=== PATIENT | male | born 1965 | race Caucasian/White ===

== ENCOUNTER 2020-06-15 06:43 | Outpatient (CLI) | payer OTHER, SELFPAY ==
--- NOTE | 2020-06-15 07:30 | XR_ITS ---
WS: [id number] XR KUB [id number] REASON FOR EXAM: KIDNEY STONE FINDINGS: There are multiple renal calculi bilaterally. The number, size, and location is unchanged on the righ t. There appears to been shifting of calculi into the upper pole of the left kidney but the size and num magdalene of calculi unchanged. No calculi are identified along the abdominal or pelvic course of the ureters. There are 2 calcificat ions in the right pelvis is not readily identifiable on the previous examination which do not appear to lie within the genitourinary tract. XR/XR KUB [id number] IMPRESSION: There are multiple renal calculi/calculus fragments in both kidneys there does not appear to have been an increase in number or volume of the calculi. There i s been shifting of the position of several calculi into the upper pole of the l eft kidney.
== END 2020-06-15 06:44 | disposition home or self-care (01) ==
PROVIDERS: PCP Family Medicine; Visit Provider Urology
DX: N20.0 Calculus of kidney (principal)
CPT/HCPCS: 74018; 81003; G0103

== ENCOUNTER 2021-01-23 13:17 | Emergency (ER) | payer OTHER, SELFPAY ==
[2021-01-23 13:45] VITALS: BP 157/75; PULSE 60; RESP 19; TEMP 36.6; O2SAT 98; BMI 36.0
--- NOTE | 2021-01-23 14:01 | CTR_ITS ---
PROCEDURE INFORMATION: Exam: CT Abdomen And Pelvis Without Contrast Exam date and time: 01/23/2021 2:01 PM Age: 55 years old Clinical indication: Abdominal pain; Flank; Right; Additional info: Hematuria, right flank pain, HX of stones TECHNIQUE: Imaging protocol: Computed tomography of the abdomen and pelvis without contrast. Radiation optimization: All CT scans at this facility use at least one of these dose optimization techniques: automated exposure control; mA and/or kV adjustment per patient size (includes targeted exams where dose is matched to clinical indication); or iterative reconstruction. COMPARISON: CR XR KUB [id number] 06/15/2020 7:24 AM RADIATION DOSE METRICS: Total DLP (mGy-cm): 8.03 FINDINGS: Liver: Normal. No mass. Gallbladder and bile ducts: Normal. No calcified stones. No ductal dilation. Pancreas: Normal. No ductal dilation. Spleen: Normal. No splenomegaly. Adrenal glands: Normal. No mass. Kidneys and ureters: 5 mm stone in the proximal right ureter series 2, image 110. No significant upstream obstruction at this time. Numerous predominantly sub 4 mm bilateral nonobstructing stones within both kidneys. The largest nonobstructing stone in the right kidney in the upper pole measures 6 mm series 2, image 87. The largest nonobstructing stone in the left kidney is in the lower pole measuring 5 mm series 2, image 104. 2 cm exophytic lesion in the upper pole left kidney, internal Hounsfield units are considered indeterminate on this noncontrast study series 2, image 87. Stomach and bowel: Unremarkable. No obstruction. No mucosal thickening. Appendix: No evidence of appendicitis. Intraperitoneal space: Unremarkable. No free air. No significant fluid collection. Vasculature: Infrarenal abdominal aortic aneurysm measuring up to 4 cm in AP dimension series 2, image 125. Lymph nodes: Unremarkable. No enlarged lymph nodes. Urinary bladder: Small 5 mm bladder stone versus recently passed stone layering the inferior bladder series 2 image 181. Reproductive: Unremarkable as visualized. Bones/joints: No acute fracture. Degenerative disc disease at L4-L5 with disc herniation at this level. Soft tissues: Unremarkable. CT/CT kidney stone [id number] IMPRESSION: 1. 5 mm stone in the proximal right ureter without significant upstream obstruction at this time. 2. Several additional nonobstructing bilateral renal stones. 5 mm bladder stone or recently passed stone within the bladder. 3. Indeterminate 2 cm exophytic lesion in the upper pole of the left kidney. Would recommend non emergent ultrasound follow-up of the kidneys to evaluate cystic or solid nature of the lesion. 4. Infrarenal abdominal aortic aneurysm measuring up to 4 cm in size. COMMENTS: Consistent with the [employer]'s Incidental Findings Committee white paper (J Am Mahnaz Radiol 2018): Any incidental renal lesion less than 1 cm or classified as too small to characterize, or any incidental cystic renal lesion characterized as simple-appearing, is likely benign. No follow-up imaging is recommended for these lesions per consensus recommendations based on imaging criteria. Radiation Dose CTDIVOL = (mGy): DLP = 2068.03 (mGy-cm)
--- NOTE | 2021-01-23 14:02 | ED_ITS ---
HPI - Male Genitourinary General: Chief complaint: Urogenital-Male Stated complaint: STATES FEELS LIKE KIDNEY STONES Time Seen by Provider: 01/23/21 13:55 History of Present Illness: HPI Narrative: Patient presents with right flank pain that started this morning. Reading some to his abdomen. Has had hematuria since Monday. Patient also nauseous now. Patient has a history of lithotripsy types 2 and having a stone taken out by basket procedure all this performed Dr. Holloway. PERSAUD Complaint: other (Flank pain) Onset (ago): hour(s) Duration: constant and progressively worsening Location: right flank Radiation: abdomen Severity: severe Severity scale (1-10): 5 Quality: dull Relieving factors: none Associated symptoms: Reports hematuria; Deny nausea or vomiting Review of Systems Const: Denies: fever(s), chills or body aches Eyes: Denies: change in vision or blurry vision ENMT: Denies: throat pain or nasal congestion Card: Denies: chest pain or dyspnea on exertion Resp: Denies: dyspnea, productive cough or non-productive cough GI: Denies: abdominal pain, nausea or vomiting : Reports: flank pain and hematuria Musc: Denies: extremity pain Skin/Breast: Denies: rash Neuro: Denies: headache(s) Psych: Denies: anxiety or depression Peter/Lymph: Denies: easy bruising PFSH ED PFSH: Medical History BPH loc w urin obs/LUTS HTN (hypertension) Hypocitraturia Kidney stones Surgical History History of arthroscopy of left knee History of extraction of renal calculus ESWL Hx of umbilical hernia repair Hx of vasectomy Social History Smoking and tobacco status: never smoked Alcohol intake: never Adopted: No Caregiver/support person: No Lives independently: No Marital status: Current occupational status: employed Physical Exam Const: COMMON NORMALS: average body habitus and patient oriented x3 GENERAL APPEARANCE: in distress ORIENTATION/CONSCIOUSNESS: Yes awake, Yes oriented to person and Yes oriented to place HENMT: COMMON NORMALS: normocephalic HEAD & SCALP: normal to inspection and normocephalic FACE & SINUS: normal facial exam Eye: COMMON NORMALS: conjunctivae normal GENERAL EYE: appearance normal, both eyes and all related structures CONJUNCTIVA: Yes conjunctivae normal Neck/C-Spine: COMMON NORMALS: no JVD Chest: COMMONS NORMALS: normal inspection of the chest Resp: COMMON NORMALS: normal respiratory effort Cardio: COMMON NORMALS: no JVD GI: INSPECTION: Yes normal to inspection Extremity: COMMON NORMALS: normal to inspection and full ROM Neuro: COMMON NORMALS: patient oriented x3 SENSORIUM/ORIENTATION: Yes oriented to person and Yes oriented to place Course Vital Signs: Vital signs: Vital Signs Temperature 97.9 F 01/23/21 13:45 Pulse Rate 60 01/23/21 13:45 Respiratory Rate 20 H 01/23/21 14:09 Blood Pressure 157/75 01/23/21 13:45 Pulse Oximetry 100 01/23/21 14:09 MDM - Male MDM Narrative: Medical decision making narrative: Discussed case with Dr. Perry tomas as planned with Dr. Quezada follow-up concerning radiology results. Lab Data: Labs: Lab Results 01/23/21 01/23/21 Range/Units 14:00 14:00 WBC 10.7 H (4.0-10.0) 10^3/ uL RBC 4.86 (4.1-5.3) 10^6/u L Hgb 14.6 (11.7-16.6) g/dL Hct 43.1 (42.0-52.0) % MCV 88.7 (80-94) fL MCH 30.0 (28.0-34.0) pg MCHC 33.9 (30.0-36.0) g/dL RDW 12.7 (12.1-15.1) % Plt Count 252 (130-400) 10^3/c mm MPV 10.8 H (7.4-10.4) fL Neut % (Auto) 80.7 % Lymph % (Auto) 9.9 % [place] % (Auto) 8.0 % Eos % (Auto) 0.6 % Baso % (Auto) 0.5 % Neut # (Auto) 8.62 H (1.8-7.7) 10^3/u L Lymph # (Auto) 1.1 (0.8-4.8) 10^3/u L [place] # (Auto) 0.9 (0.2-0.9) 10^3/u L Eos # (Auto) 0.1 (0.0-0.8) 10^3/u L Baso # (Auto) 0.1 (0.0-0.1) 10^3/u L Nucleated RBC % (a uto) 0 % Nucleated RBCs # 0.0 /100WBC Sodium 140 (136-145) mmol/L Potassium 4.6 (3.5-5.1) mmol/L Chloride 102 (98-107) mmol/L Carbon Dioxide 24 (22-29) mmol/L Anion Gap 18.6 (5-19) BUN 19 (6-20) mg/dL Creatinine 1.4 H (0.7-1.2) mg/dL GFR Calculation 52.2 L (90-130) mL/min Glucose 152 H (65-115) mg/dL Calculated Osmolal ity 295 (285-295) mOsm/k g Calcium 9.4 (8.5-10.5) mg/dL Total Bilirubin 0.5 (0.15-1.2) mg/dL AST 27 (0-40) U/L ALT 23 (0-41) U/L Alkaline Phosphata se 168 H (40-130) IU/L Total Protein 7.7 (6.6-8.7) g/dL Albumin 4.3 (3.5-5.2) g/dL Globulin 3.4 (1.3-4.6) g/dL Lipase 33 (13-60) U/L Discharge Plan Discharge Patient Disposition: Home Clinical Impression: Calculus, urinary bladder, Aneurysm of infrarenal abdominal aorta, Lesion of left [place] kidney Calculus, urinary Qualifiers: Urinary calculus location: ureter Qualified Code(s): N20.1 - Calculus of ureter Condition: Stable Prescriptions: New Flomax 0.4 mg capsule 0.4 mg PO DAILY Qty: 7 RF: 0 Zofran 4 mg tablet 4 mg PO Q8H 3 Days Qty: 9 RF: 0 No Action atorvastatin 40 mg tablet 40 mg PO DAILY RF: 0 metoprolol succinate 50 mg tablet extended release 24 hr 50 mg PO DAILY RF: 0 finasteride 5 mg tablet 5 mg PO DAILY Qty: 90 RF: 3 hydrochlorothiazide 12.5 mg tablet 12.5 mg PO DAILY RF: 0 Centrum Silver Ultra Men's 300-600-300 mcg Tablet 1 tab PO DAILY RF: 0 alfuzosin 10 mg tablet extended release 24 hr 10 mg PO DAILY RF: 0 potassium citrate 15 mEq tablet extended release 15 meq PO BID RF: 0 Discharge Orders: Discharge ED (Routine); Ordered 01/23/21 Ordered By: Jann Austin Referrals: Christine Curtis MD [Primary Care Provider] - Discharge Diet: Usual diet Discharge Activity: Increase activity as tolerated Patient Instructions: Kidney Stones (ED), Renal Colic (ED), How to Strain Your Urine (ED), Opioid Safety Activity Restrictions/Additional Instructions: Follow-up with medical provider as directed. Take medications as prescribed. Return to the ER or your medical provider if condition worsens. Please read and understand discharge instructions. If any questions ask please. Make sure you follow-up Dr. Curtis and go over radiology results pertaining to the stone, renal aneurysm, kidney lesion. Strain urine, contact Dr. Jovel's office for follow-up appointment as necessary, Coding Level of Care Code ED Engineer Automated Equipment for Mukund Fwd Exam Comprehensive
[2021-01-23] MEDS: ondansetron 2 mg/ML SDV 2 mL 8 MG IVP (14:08)
[2021-01-23 14:09] VITALS: RESP 20; O2SAT 100
[2021-01-23] MEDS: morphine 4 mg/mL SDV 1 mL IVP (14:09)
[2021-01-23] MEDS: sodium chloride 0.9% 1,000 ML 999 ML IV (14:20)
[2021-01-23 14:23] LABS: Basophils # 0.1 10^3/uL (0.0-0.1); Basophils % 0.5 %; Eosinophils # 0.1 10^3/uL (0.0-0.8); Eosinophils % 0.6 %; Hematocrit 43.1 % (42.0-52.0); Hemoglobin 14.6 g/dL (11.7-16.6); Lymphocytes # 1.1 10^3/uL (0.8-4.8); Lymphocytes % 9.9 %; Mean Corpuscular HGB Conc 33.9 g/dL (30.0-36.0); Mean Corpuscular Volume 88.7 fL (80-94); Mean Platelet Volume 10.8 fL (7.4-10.4); Monocytes # 0.9 10^3/uL (0.2-0.9); Neutrophils # 8.62 10^3/uL (1.8-7.7); Neutrophils % 80.7 %; Nucleated Red Blood Cells % 0 %; Platelet Count 252 10^3/cmm (130-400); Red Blood Count 4.86 10^6/uL (4.1-5.3); Red Cell Distribution Width 12.7 % (12.1-15.1); White Blood Count 10.7 10^3/uL (4.0-10.0)
[2021-01-23 14:58] LABS: Alanine Aminotransferase 23 U/L (0-41); Albumin Level 4.3 g/dL (3.5-5.2); Alkaline Phosphatase 168 IU/L (40-130); Anion Gap 18.6 (5-19); Aspartate Amino Transferase 27 U/L (0-40); Blood Urea Nitrogen 19 mg/dL (6-20); Calcium 9.4 mg/dL (8.5-10.5); Carbon Dioxide 24 mmol/L (22-29); Chloride 102 mmol/L (98-107); Globulin 3.4 g/dL (1.3-4.6); Glomerular Filtration Rate 52.2 mL/min (90-130); Glucose 152 mg/dL (65-115); Lipase 33 U/L (13-60); Osmolality Calculated 295 mOsm/kg (285-295); Potassium 4.6 mmol/L (3.5-5.1); Sodium 140 mmol/L (136-145); Total Bilirubin 0.5 mg/dL (0.15-1.2); Total Protein 7.7 g/dL (6.6-8.7)
[2021-01-23 15:00] VITALS: BP 150/89; PULSE 65; RESP 18; O2SAT 98
[2021-01-23 15:09] VITALS: RESP 18
[2021-01-23] MEDS: HYDROmorphone 1 mg/mL INJ 1 mL IVP (15:09)
[2021-01-23] MEDS: tamsulosin 0.4 mg Capsule 0.8 MG PO (15:09)
== END 2021-01-23 15:30 | disposition home or self-care (01) ==
PROVIDERS: Emergency Provider Nurse Practitioner Family; PCP Family Medicine
DX: N20.1 Calculus of ureter (principal); N21.0 Calculus in bladder; N28.9 Disorder of kidney and ureter, unspecified; I71.4 Abdominal aortic aneurysm, without rupture; I10 Essential (primary) hypertension
CPT/HCPCS: 74176; 80053; 83690; 85025; 96361; 96374; 96375; 99284; J1170; J2270; J2405; J7030

== ENCOUNTER 2021-01-26 08:38 | Outpatient (CLI) | payer OTHER, SELFPAY ==
--- NOTE | 2021-01-26 08:45 | XR_ITS ---
WS: [id number] XR KUB [id number] REASON FOR EXAM: STONES FINDINGS: Compared to 06/15/2020 there are multiple right renal calculi which appear stable in number and posit ion. The contradiction to that impression is that there appears to be a calculus in the distal right ureter overlying the right transverse process of L4. In addition there is a calculus in the deep righ t pelvis. Neither of these calculi are identified on the previous examination. There are multiple calculi on the left as well. The central complex shape calculus previously identif ied on 06/15/2020 is no longer visualized. This calculus is not identified within the pelvis. XR/XR KUB 83800 IMPRESSION: 1 calculus in the left kidney is no longer identifiable. While there appears to be the same number of calculi in the right kidney as pre viously noted there are 2 additional calculi in the right lower abdomen and rig ht pelvis as above.
== END 2021-01-26 08:39 | disposition home or self-care (01) ==
LOC: RAD 08:47
PROVIDERS: PCP Family Medicine; Visit Provider Urology
DX: N20.9 Urinary calculus, unspecified (principal); Z20.822 Contact with and (suspected) exposure to COVID-19; N20.0 Calculus of kidney
CPT/HCPCS: 74018; 81003; 87635

== ENCOUNTER 2021-01-29 07:28 | Outpatient (CLI) | payer OTHER, SELFPAY ==
--- NOTE | 2021-01-29 07:30 | XR_ITS ---
WS: [id number] XR KUB [id number] REASON FOR EXAM: stones FINDINGS: There are multiple bilateral renal calculi. There is a calculus in the right ureter just above the L5 -S1 level. These calculi are unchanged in position compared to the previous examination of 01/26/2021. No other significant abnormality or interval change is identified. XR/XR KUB 56494 IMPRESSION: Stable renal and right ureteral calculi as above.
== END 2021-01-29 07:29 | disposition home or self-care (01) ==
PROVIDERS: PCP Family Medicine; Visit Provider Urology
DX: N20.2 Calculus of kidney with calculus of ureter (principal)
CPT/HCPCS: 74018

== ENCOUNTER 2021-01-29 11:06 | Day surgery (SDC) | payer OTHER, SELFPAY ==
[2021-01-29] VITALS (8 sets, daily range): BP systolic 133–149; BP diastolic 78–105; PULSE 65–89; RESP 12–23; TEMP 36.1–36.6; O2SAT 94–98; BMI 34.7
--- NOTE | 2021-01-29 | SCC_ITS ---
Procedure Done: 1. Cystoscopy, right retrograde ureteropyelogram 2. RIGHT ureteral renoscopy,, laser lithotripsy, stent (six Slovak by 30 cm double-pigtail without string) 64.3 seconds of fluoroscopic guidance, for a cumulative dose of 28.58 mGy, was provided to Dr. Jovel by the radiology department. C-arm images of the abdomen were saved for the patient's permanent record. [facility]
--- NOTE | 2021-01-29 11:21 | SC_ITS ---
WS: [id number] C-arm FL for Urology REASON FOR EXAM: Preop right ureteroscopy FINDINGS: Contrast was injected into the right renal collecting system and the right ureter imaged from the ure teral pelvic junction to the scope in the urinary bladder. Previously there was a calculus in the right ureter at the L5-S1 level. No calculus is identified zach ng the course of the ureter as defined by the contrast injection. SC/C-arm [facility] for U[facility] IMPRESSION: Removal of right ureteral calculus confirmed by retrograde ureteral pyelogram.
[2021-01-29] MEDS: sodium chloride 0.9% 1,000 ML 30 ML IV (11:59)
--- NOTE | 2021-01-29 12:07 | ANES.PREANE2 ---
Pre-Anesthetic Assessment Pre-Anesthetic Assessment: Height/Weight: Height 1.85 m Weight 119.295 kg Temp Pulse Resp BP Pulse Ox 97.5 F L 89 16 149/105 97 01/29/21 11:31 01/29/21 11:31 01/29/21 11:31 01/29/21 11:31 01/29/21 11:31 Preop Diagnosis: Right mid ureteral calculus Proposed Procedure: Operation Date: 01/29/21 13:00 Proposed Procedures p Laser Lithotripsy 60726 [id number] 02635 n20.1(Not Applicable) - MD flaquito Liu Cystoscopy(Not Applicable) - MD flaquito Liu Retrograde Pyelogram(Right) - MD flaquito Liu Ureteroscopy(Not Applicable) - MD flaquito Liu Ureteral Stent Placement(Not Applicable) - Joel Jovel MD Was Beta Elizabeth taken within 24 hours: Yes Was Clonidine taken within 24 hours: N/A Last intake: Intake Last Liquid Date 01/29/21 Last Liquid Time 06:30 Last Solid Date 01/28/21 Last Solid Time 19:00 Social: Social History: No alcohol and No tobacco Exam: Pre-Anes Outpt Exam: alert, oriented x 3, clear to auscultation bilaterally and regular rate & rhythm Airway: Submandibular: WNL Cervical ROM: WNL MP: 2 Dentition: Full CV/HEM: CV/HEM: HTN and PVD (Infrarenal AAA) : Comments: Renal colic/stone Metabolic: Metabolic: Hyperlipidemia and Morbid obesity Anesthetic Plan: ASA status: 3 Anesthesia: General Risk of > 500 ml blood loss (7ml/kg in children): No Meds/Allergies Current Medications: Current Medications Generic Name Dose Route Start Last Admin Trade Name Freq PRN Reason Stop Dose Admin Sodium Chloride 1,000 mls @ 30 ml s/hr 01/29/21 11:30 01/29/21 11:59 Sodium Chloride 0.9% IV 01/30/21 11:29 30 mls/hr .Q24H PUSHPA Administration PFSH Anesthesia PFSH: 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
--- NOTE | 2021-01-29 12:58 | W.PM.OPSUD ---
Surgery/Procedure H&P Update DATE OF PROCEDURE: January 29, 2021 DATE H&P PERFORMED: 01/26/21 H&P UPDATE INFORMATION: I have reviewed H&P completed within last 30 days, I have examined patient prior to procedure, No changes to prior documentation and H&P is in [facility] EMR on date indicated PREOP DIAGNOSIS: Right mid ureteral calculus, Refractory pain PLANNED PROCEDURE: Operation Date: 01/29/21 13:00 Proposed Procedures p Laser Lithotripsy 85282 [id number] 45340 n20.1(Not Applicable) - Joel Jovel MD s Cystoscopy(Not Applicable) - MD flaquito Liu Retrograde Pyelogram(Right) - MD flaquito Liu Ureteroscopy(Not Applicable) - Joel Jovel MD s Ureteral Stent Placement(Not Applicable) - Joel Jovel MD
[2021-01-29] MEDS: levofloxacin-dextrose 5 % 500 MG/100 ML PREMIX 100 MG IV (13:00)
--- NOTE | 2021-01-29 13:03 | P.OP_ITS ---
Operative Report Date of procedure: January 29, 2021 Pre-op Diagnosis: Right mid ureteral calculus, Refractory pain Post-op Diagnosis: Right mid ureteral calculus, refractory pain Procedure Done: 1. Cystoscopy, right retrograde ureteropyelogram 2. RIGHT ureteral renoscopy,, laser lithotripsy, stent (six Angolan by 30 cm double-pigtail without string) Surgeon: Med Anesthesia: General Estimated blood loss: Minimal Urine output: Not measured Complications: None Brief History: Dipesh is a very pleasant 56-year-old white male with complex stone history. Has multiple bilateral renal calculi. Was recently evaluated emergency department for right renal colicky symptoms and was found to have a large stone in the right mid ureter that failed to significantly progressed. Was having intermittent bouts of severe pain and difficulty controlling it with oral narcotics of appropriate dosing. Ultimately chose to proceed with intervention. Further complicated by 4 cm distal abdominal aortic aneurysm. Not a candidate for ESWL Procedure: After routine preoperative evaluation examination and obtaining of informed consent he was taken to the operating suite on 01/29/2021 where general anesthesia was administered without difficulty after appropriate timeout was performed, SCDs confirmed to be functioning, preoperative antibiotics administered, beta-gail protocol confirmed. Prepped and draped in the usual sterile fashion in dorsolithotomy position paying careful attention to avoiding pressure points. Twenty-one Angolan cystoscope with 30 degree lens was introduced into the urethra meatus and advanced into the bladder under videoscopy. Bladder was systematically examined. A small bladder stone was identified and flushed out of the bladder. An eight Angolan cone-tip catheter was intubated to the right ureteral orifice for right retrograde ureteropyelogram demonstrating the following: Normal distal ureter. No filling defects until the stone was encountered at the expected level at about L4. Ureter proximal to that point was dilated. A flexible tip guidewire was then advanced up the right ureter bypassing the stone. Distal ureter was dilated with a fifteen Angolan 4 cm balloon. A second guidewire was then passed after the first was secured to the drapes as a safety wire. The working wire was then used to advance a 24 cm ureteral access sheath to just below the level of the stone without difficulty. A seven Angolan offset semirigid ureteroscope was then advanced up the sheath to the stone which was then fragmented with a 365 ?m thulium superpulse laser fiber. Dusting technique was utilized with excellent results. There was some migration of larger fragments into the renal pelvis. The flexible ureterorenoscope was then passed through the sheath up the ureter into the renal pelvis where these fragments were fragmented into sand and very tiny particles. 3 other stones not related to the ureter stones were identified. 2 of them could be reached with the scope 1 could not to the reach were fragmented. Most of the fragments were just sand and a lot of that was flushed through the sheath. A fair amount of the particles were flushed through the sheath and sent for pathologic evaluation. On final inspection of the scope no residual fragments remained. The cystoscope was then backloaded over the safety wire and a six Angolan by 30 cm double-pigtail stent was advanced over the guidewire through the cystoscope into appropriate position as confirmed via fluoroscopy and cystoscopy. Tolerated the procedure well without complications and was awakened in the operating room and returned to the recovery room in stable condition. PLANS: 1. Follow-up late next week for cystoscopy and stent removal with KUB first
--- NOTE | 2021-01-29 14:40 | PM.PACU ---
Documented by User: Nilay Clancy CRNA 01/29/21 14:41 PACU note PACU note: VSS, Good respiratory effort, report to [facility] Post-Anesthesia Exam: awake
--- NOTE | 2021-01-29 15:16 | ANE.PACU2 ---
Inpatient post-anesthesia follow up: Airway intact: Yes Vital signs: Temperature 97.8 F Pulse Rate 71 Respiratory Rate 14 Blood Pressure 134/78 Pulse Oximetry 97 Oxygen Delivery Me thod Room Air Oxygen Flow Rate Fraction of Inspir ed Oxygen Hydration adequate: Yes Nausea and vomiting: No Pain level: 2 Mental status: Baseline
[2021-01-29] MEDS: oxyCODONE-APAP 5-325 mg Tablet 1 TAB PO (15:34)
[2021-02-05 12:27] LABS: Stone Source RIGHT URETER
== END 2021-01-29 15:45 | disposition home or self-care (01) ==
PROVIDERS: PCP Family Medicine; Visit Provider Urology
PROC: (CPT 52356; principal; 2021-01-29 13:00)
PROC: 0TJB8ZZ Inspection of Bladder, Via Natural or Artificial Opening Endoscopic (ICD-10-PCS; CPT 52000; 2021-01-29 13:00)
PROC: (CPT 74420; 2021-01-29 13:00)
PROC: 0TJ98ZZ Inspection of Ureter, Via Natural or Artificial Opening Endoscopic (ICD-10-PCS; CPT 52351; 2021-01-29 13:00)
PROC: (CPT 50605; 2021-01-29 13:00)
DX: N20.1 Calculus of ureter (principal); I10 Essential (primary) hypertension; E78.5 Hyperlipidemia, unspecified; E66.01 Morbid (severe) obesity due to excess calories; Z68.34 Body mass index [BMI] 34.0-34.9, adult; N40.1 Benign prostatic hyperplasia with lower urinary tract symptoms; N13.8 Other obstructive and reflux uropathy
CPT/HCPCS: 52356; 76000; 81003; 82365; 88300; 96365; C2625; J1100; J1956; J2405; J2704; J2710; J3010; J3490; J7030

== ENCOUNTER 2021-02-05 07:11 | Outpatient (CLI) | payer OTHER, SELFPAY ==
--- NOTE | 2021-02-05 10:00 | XRR_ITS ---
PROCEDURE INFORMATION: Exam: XR Abdomen Exam date and time: 02/05/2021 10:00 AM Age: 56 years old Clinical indication: Condition or disease; Kidney or ureter condition; Calculus (stone) in kidney; Additional info: Kidney stones TECHNIQUE: Imaging protocol: XR of the abdomen. Views: Frontal supine view of the abdomen. 1 View. COMPARISON: CR XR KUB [id number] 01/29/2021 7:41 AM FINDINGS: Tubes, catheters and devices: Sequela of double-J right ureteral stent in expected positioning. The right ureteral stone is not evident on exam. Redemonstrated sequela of bilateral nonobstructing nephrolithiasis, the stone burden in the right kidney may be slightly improved. Gastrointestinal tract: Normal. No bowel dilation. Bones/joints: Unremarkable. XR/XR KUB [id number] IMPRESSION: 1. Double-J right ureteral stent in expected positioning. Right ureteral stone noted on prior study not evident on exam. 2. Bilateral nonobstructing nephrolithiasis, the stone burden in the right kidney may be slightly improved.
== END 2021-02-05 07:12 | disposition home or self-care (01) ==
LOC: RAD 07:13
PROVIDERS: PCP Family Medicine; Visit Provider Urology
DX: N20.0 Calculus of kidney (principal); Z96.0 Presence of urogenital implants
CPT/HCPCS: 74018; 81003

== ENCOUNTER 2021-03-10 07:50 | Outpatient (CLI) | payer OTHER, SELFPAY ==
--- NOTE | 2021-03-10 08:00 | US_ITS ---
WS: [id number] ULTRASOUND RENAL TECHNIQUE: Ultrasound examination of both kidneys. CLINICAL INFORMATION: RENAL MASS COMPARISON: CT January 23, 2021 FINDINGS: Mild bilateral renal cortical atrophy. RIGHT: Right kidney is normal in size and appearance. Echogenicity: Normal Hydronephrosis: None. Perinephric fluid: None. Right kidney measures: 11.4 cm x 5.1 cm x 5.5 cm. LEFT:Simple renal cyst upper pole measuring 1.3 x 2.4 x 1.5 cm corresponds to the recent CT findings. Left kidney is normal in size and appearance. Echogenicity: Normal. Hydronephrosis: None. Perinephric fluid: None. Left kidney measures: 11.9 cm x 6.1 cm x 5.5 cm. Normal visualized aorta. Normal bladder. US/US renal BI* [id number] IMPRESSION: 1. Mild bilateral renal cortical atrophy. 2. Bilateral nonobstructing subcentimeter calyceal tip calculi. 3. Simple renal cyst upper pole measuring 1.3 x 2.4 x 1.5 cm
== END 2021-03-10 07:51 | disposition home or self-care (01) ==
LOC: US 07:52
PROVIDERS: PCP Family Medicine; Visit Provider Urology
DX: N28.89 Other specified disorders of kidney and ureter (principal); N26.1 Atrophy of kidney (terminal); N28.1 Cyst of kidney, acquired
CPT/HCPCS: 76770; 81003

== ENCOUNTER 2021-06-15 08:06 | Outpatient (CLI) | payer OTHER, SELFPAY ==
--- NOTE | 2021-06-15 08:15 | XR_ITS ---
WS: [id number] XR KUB [id number] REASON FOR EXAM: KIDNEY STONES FINDINGS: Compared to previous examination of 02/05/2021, the right ureteral stent is been removed. Several small calculi remain in the mid and lower right kidney without interval change. Previously de monstrated obstructing proximal right ureteral calculus no longer identified. Multiple calculi are seen in the mid and lower left kidney without interval change. No calculi identified in the urinary tract in the pelvis. No other significant abdominal abnormality. XR/XR KUB [id number] IMPRESSION: Multiple stable bilateral renal calculi.
== END 2021-06-15 08:07 | disposition home or self-care (01) ==
PROVIDERS: PCP Family Medicine; Visit Provider Urology
DX: N20.0 Calculus of kidney (principal)
CPT/HCPCS: 74018; 81003

== ENCOUNTER 2022-08-29 13:30 | Outpatient (CLI) | payer OTHER, SELFPAY ==
--- NOTE | 2022-08-29 13:47 | XR_ITS ---
WS: [id number] KUB, AP view, 08/29/2022 Clinical Data: Kidney Stones Comparison: KUB, 06/15/2021 Findings: There are calcifications overlying both kidneys which are smaller compared to the prior study. No abnormal intraabdominal masses are seen. There is no dilatated small bowel or evidence of obstruct ion. There is a moderate amount of fecal material in the ascending and transverse colon. XR/XR KUB [id number] Impression: Bilateral small renal calculi.
== END 2022-08-29 13:31 | disposition home or self-care (01) ==
PROVIDERS: PCP Family Medicine; Visit Provider Urology
DX: N20.0 Calculus of kidney (principal)
CPT/HCPCS: 74018; 81003

== ENCOUNTER 2024-02-05 10:34 | Outpatient (CLI) | payer OTHER, SELFPAY ==
--- NOTE | 2024-02-05 10:38 | US_ITS ---
WS: [id number] RENAL ULTRASOUND HISTORY: CHRONIC KIDNEY DZ, STAGE 3 COMPARISON: 03/10/2021 TECHNIQUE: 2-D and color Doppler imaging of the kidney submitted. Quality this examination is compromised by body habitus. Right kidney: 11.8 cm x 5.0 cm x 5.1 cm. Cortex: 1.0 cm Normal size kidney. Mild dilatation of the renal pelvis and proximal ureter. No mass identified. Left kidney: 10.6 cm x 5.2 cm x 5.0 cm. Cortex: 1.0 cm Normal size kidney. Cortical cyst upper pole measures 2.8 x 2.7 x 2.3 cm. No obstruction. Aorta: Normal. Urinary Bladder: Mild bladder wall thickening is diffuse Prostate gland is enlarged encroaching into the bladder. US/US renal BI* [id number] IMPRESSION: 1. Mild RIGHT hydronephrosis, new since 03/10/2021. 2. No hydronephrosis on the LEFT. 3. Marked bladder wall thickening and prostate gland enlargement.
== END 2024-02-05 10:35 | disposition home or self-care (01) ==
LOC: RAD 10:35
PROVIDERS: PCP Family Medicine; Visit Provider Family Medicine
DX: N18.30 Chronic kidney disease, stage 3 unspecified (principal); N32.89 Other specified disorders of bladder; N40.0 Benign prostatic hyperplasia without lower urinary tract symptoms
CPT/HCPCS: 76770